=== PATIENT | female | born 1995 | race American Indian/Alaskan Native ===

== ENCOUNTER 2021-05-11 09:14 | Emergency (ER) | payer SELFPAY ==
[2021-05-11] MEDS ORDERED: KETOROLAC 30 MG/1 ML INJ IM NR (09:24)
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
[2021-05-11 09:40] VITALS: BP 146/86
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
== END 2021-05-11 11:00 | disposition home or self-care (01) ==
LOC: ED 09:14
DX: S16.1XXA Strain of muscle, fascia and tendon at neck level, initial encounter (principal); S20.219A Contusion of unspecified front wall of thorax, initial encounter; V87.7XXA Person injured in collision between other specified motor vehicles (traffic), initial encounter; Y93.89 Activity, other specified; Y92.488 Other paved roadways as the place of occurrence of the external cause; Y99.8 Other external cause status
CPT/HCPCS: 71046; 99283

== ENCOUNTER 2021-06-27 02:56 | Emergency (ER) | payer SELFPAY ==
[2021-06-27 03:44] LABS: Bilirubin,Urine NEG (Negative); Blood,Urine MOD (Negative); Color,Urine Yellow (Yellow); Hyaline Casts,Urine 1 /LPF; Mucus,Urine FEW /HPF; Protein,Urine <15 mg/dL mg/dL (Negative); Urobilinogen,Urine < 2.0 mg/dL (<2.0); WBC,Urine < 1.0 /HPF (0.0-6.0)
[2021-06-27 04:03] LABS: Basophils % (Auto) 0.5 % (0.0-1.8); Eosinophils # (Auto) 0.1 K/mm3 (0.0-0.4); Eosinophils % (Auto) 1.2 % (0.0-4.3); Hematocrit 39.3 % (30.3-42.9); Hemoglobin 12.6 gm/dl (10.1-14.3); Lymphocytes # (Auto) 2.9 K/mm3 (1.2-5.4); Lymphocytes % (Auto) 35.4 % (13.4-35.0); Mean Corpuscular HGB Conc 32 % (30-34); Mean Corpuscular Volume 85 fl (79-97); Monocytes # (Auto) 0.7 K/mm3 (0.0-0.8); Monocytes % (Auto) 8.3 % (0.0-7.3); Platelet Count 200 K/mm3 (140-440); Red Blood Count 4.62 M/mm3 (3.65-5.03); Red Cell Distribution Width 13.3 % (13.2-15.2)
[2021-06-27] MEDS ORDERED: HYDROcodone/ACETAMINOPHEN 5-325 MG TAB PO ONE (08:08)
[2021-06-27] MEDS ORDERED: KETOROLAC 10 MG TAB PO ONE (08:08)
--- NOTE | 2021-06-27 08:08 | Emergency Department Report ---
ED Female HPI - General Chief complaint: Vaginal Bleeding Stated complaint: ABD PAIN Time Seen by Provider: 06/27/21 07:59 Source: patient Mode of arrival: Ambulatory Limitations: No Limitations - History of Present Illness Initial comments: 25-year-old female presents to the ER today with complaints of abnormal vaginal bleeding. Patient states that she started bleeding May 06 and has continued to bleed since. She states that in the past 2 days the bleeding has increased and she has been having increasing lower abdominal cramping. She states that in the past couple days she is been changing 5-6 tampons per day. She has also been passing large clots. She states that the last time she had a normal menstrual cycle was February 12, 2021. She states that she did not have a period in April nor March. She states that she recently lost her medical insurance and therefore has not been able to follow-up with an APPEALS MANAGER. She is not currently on any control. She has been taking ibuprofen or Advil for pain without much relief. She reports no additional symptoms in the past. MD Complaint: vaginal bleeding -: week(s) (since may 06 ) - Related Data Previous Rx's Medication Instructions Recorded Last Taken Type Ibuprofen [Motrin] 600 mg PO Q8H PRN #20 tablet 05/11/21 Unknown Rx Acetaminophen/Codeine [Tylenol 1 tab PO Q6H PRN #12 tab 06/27/21 Unknown Rx /Codeine # 3 tab] Ketorolac [Toradol] 10 mg PO Q6H PRN #20 06/27/21 Unknown Rx medroxyPROGESTERone ACETATE 10 mg PO DAILY #10 06/27/21 Unknown Rx [Provera] Allergies Allergy/AdvReac Type Severity Reaction Status Date / Time No Known Allergies Allergy Verified 05/11/21 09:40 ED Review of Systems ROS: Stated complaint: ABD PAIN Other details as noted in HPI Comment: All other systems reviewed and negative Constitutional: denies: chills, fever Eyes: denies: eye pain, eye discharge, vision change ENT: denies: ear pain, throat pain Respiratory: denies: cough, shortness of breath, SOB with exertion, SOB at rest, wheezing Cardiovascular: denies: chest pain, palpitations Gastrointestinal: abdominal pain. denies: nausea, vomiting, diarrhea, constipation, hematemesis, hematochezia Genitourinary: abnormal menses. denies: urgency, dysuria, frequency, hematuria, discharge Musculoskeletal: denies: joint swelling, arthralgia, myalgia Skin: denies: rash, lesions, change in color, change in hair/nails, pruritus Neurological: denies: headache, weakness, numbness, paresthesias, confusion, abnormal gait, vertigo Psychiatric: denies: anxiety, depression, auditory hallucinations, visual hallucinations, homicidal thoughts, suicidal thoughts Hematological/Lymphatic: denies: easy bleeding, easy bruising, swollen glands ED Past Medical Hx - Past Medical History Additional medical history: anemia - Medications Home Medications: Home Medications Medication Instructions Recorded Confirmed Last Taken Type Ibuprofen [Motrin] 600 mg PO Q8H PRN #20 tablet 05/11/21 Unknown Rx Acetaminophen/Codeine [Tylenol 1 tab PO Q6H PRN #12 tab 06/27/21 Unknown Rx /Codeine # 3 tab] Ketorolac [Toradol] 10 mg PO Q6H PRN #20 06/27/21 Unknown Rx medroxyPROGESTERone ACETATE 10 mg PO DAILY #10 06/27/21 Unknown Rx [Provera] ED Physical Exam - General Limitations: No Limitations General appearance: alert, in no apparent distress, obese - Head Head exam: Present: atraumatic, normocephalic, normal inspection - Eye Eye exam: Present: normal appearance, PERRL, EOMI Pupils: Present: normal accommodation - Neck Neck exam: Present: normal inspection, full ROM. Absent: meningismus - Respiratory Respiratory exam: Present: normal lung sounds bilaterally. Absent: respiratory distress, wheezes, rales, rhonchi - Cardiovascular Cardiovascular Exam: Present: regular rate, normal rhythm, normal heart sounds - GI/Abdominal GI/Abdominal exam: Present: soft, tenderness (Mild diffuse lower abd ttp). Absent: distended, guarding, rebound - Neurological Exam Neurological exam: Present: alert, oriented X3, CN II-XII intact, normal gait - Psychiatric Psychiatric exam: Present: normal affect, normal mood - Skin Skin exam: Present: intact ED Course Vital Signs 06/27/21 06/27/21 03:11 09:41 Temperature 98.5 F Pulse Rate 82 72 Respiratory 18 16 Rate Blood Pressure 170/92 Blood Pressure 148/92 [Right] O2 Sat by Pulse 97 99 Oximetry ED Medical Decision Making - Lab Data Result diagrams: 06/27/21 03:41 - Radiology Data Radiology results: report reviewed Patient Name: SALMA RICHARDSON Gender: Female Date of : 1995 Referring Provider: EFREM MOSELEY Organization: [facility] Accession Number: [id number] Requested Date: June 27, 2021 08:08 Report Status: Final Requested Procedure: 1 Procedure Description: US pelvic complete Modality: US Findings Reporting MD: Baltazar Joyner Dictation Time: June 27, 2021 08:06 Digital Design Engineer: Not available Rehabilitation Aide Date: PELVIC ULTRASOUND INDICATION: severe pain/abnormal bleeding COMPARISON: None pertinent available TECHNIQUE: Transabdominal and endovaginal FINDINGS: Uterus: Measures 8.6 x 4.2 x 6.1 cm. The endotracheal stripe is thickened at 17 mm and has a heterogenous appearance. I do not see obvious fluid. No defined collection is seen. Small nabothian type cysts are seen in the lower uterine segment. No definite leiomyoma is identified. Right ovary: Measures 3.5 cm in length and shows multiple small follicular-type cysts. Blood flow is noted. Left ovary: Measures 3.8 cm in length and shows multiple small follicular-type cysts. Blood flow is noted. No adnexal masses are seen. Free fluid: None IMPRESSION: Thickened heterogenous endometrium without specific etiology - Medical Decision Making 25-year-old female presents to the ER today with complaints of abnormal vaginal bleeding. Patient states that she started bleeding May 06 and has continued to bleed since. She states that in the past 2 days the bleeding has increased and she has been having increasing lower abdominal cramping. She states that in the past couple days she is been changing 5-6 tampons per day. She has also been passing large clots. She states that the last time she had a normal menstrual cycle was February 12, 2021. She states that she did not have a period in April nor March. She states that she recently lost her medical insurance and therefore has not been able to follow-up with an APPEALS MANAGER. She is not currently on any control. She has been taking ibuprofen or Advil for pain without much relief. She reports no additional symptoms in the past. CBC unremarkable. CMP unremarkable. hCG is negative. Urinalysis negative for UTI. Pelvic ultrasound shows no significant abnormalities. Exact cause of patient abdominal bleeding at this time unclear. Patient currently is not toxic or ill-appearing. Her gait is normal. She is neurologically intact. She appears hydrated. Her vital signs are stable. Discussed results with patient. Recommend that she follows up with APPEALS MANAGER for additional evaluation especially if her symptoms persist. In the meantime we will prescribe her 10 days of Provera (she does not smoke and denies any history of DVT or PE) and medication to help with pain. Patient expressed understanding agree with plan. Patient was stable at time of discharge. Critical care attestation.: If time is entered above; I have spent that time in minutes in the direct care of this critically ill patient, excluding procedure time. ED Disposition Clinical Impression: Dysfunctional uterine bleeding Disposition: HOME / SELF CARE / HOMELESS Is pt being admited?: No Does the pt Need Aspirin: No Condition: Stable Instructions: Abnormal Uterine Bleeding, [id number] Additional Instructions: Take the Provera as prescribed. You can take the pain medication as prescribed to help with your pain. Follow-up with the APPEALS MANAGER for further evaluation especially if your symptoms persist despite the Provera. Return to the ER if your symptoms changes or worsens in any way. Prescriptions: medroxyPROGESTERone ACETATE [Provera] 10 mg PO DAILY #10 Ketorolac [Toradol] 10 mg PO Q6H PRN #20 PRN Reason: Pain Acetaminophen/Codeine [Tylenol /Codeine # 3 tab] 1 tab PO Q6H PRN #12 tab PRN Reason: Pain , Severe (7-10) Referrals: STEPHANIE EDMONDS MD [Primary Care Provider] - 3-5 Days [facility] [Provider Group] - 3-5 Days [facility] [Provider Group] - 3-5 Days Forms: Work/School Release Form(ED) Time of Disposition: 09:26
[2021-06-27 09:42] VITALS: BP 148/92
--- NOTE | 2021-06-27 11:33 | Ultrasound Report ---
PELVIC ULTRASOUND INDICATION: severe pain/abnormal bleeding COMPARISON: None pertinent available TECHNIQUE: Transabdominal and endovaginal FINDINGS: Uterus: Measures 8.6 x 4.2 x 6.1 cm. The endotracheal stripe is thickened at 17 mm and has a heteroge nous appearance. I do not see obvious fluid. No defined collection is seen. Small nabothian type cyst s are seen in the lower uterine segment. No definite leiomyoma is identified. Right ovary: Measures 3.5 cm in length and shows multiple small follicular-type cysts. Blood flow is noted. Left ovary: Measures 3.8 cm in length and shows multiple small follicular-type cysts. Blood flow is n oted. No adnexal masses are seen. Free fluid: None IMPRESSION: Thickened heterogenous endometrium without specific etiology Signer Name: Baltazar Joyner MD Signed: 06/27/2021 9:06 AM Workstation Name: [id number]
== END 2021-06-27 09:42 | disposition home or self-care (01) ==
LOC: ED 02:56
DX: N93.9 Abnormal uterine and vaginal bleeding, unspecified (principal)
CPT/HCPCS: 36415; 76830; 76856; 81001; 84702; 84703; 85025; 86900; 86901; 99283; 99284